=== PATIENT | male | born 1950 | race Caucasian/White ===

== ENCOUNTER 2017-05-17 07:48 | Inpatient (IN) | payer MEDICARE, OTHER ==
[~2017-05-17] VITALS: Ht 167.6 cm; Wt 66.0 kg
[2017-05-17 08:01] LABS: GLUCOSE,POINT OF CARE 208 MG/DL (70-110)
[2017-05-17] MEDS ORDERED: AMLO1TAB51 PO (08:04)
[2017-05-17] MEDS ORDERED: METF500T4 PO (08:04)
[2017-05-17 08:11] LABS: BASOPHILS % (AUTO) 0.4 % (0.0-2.0); HEMATOCRIT 43.8 % (41-53); HEMOGLOBIN 14.7 g/dL (13.5-17.5); LYMPHOCYTES # (AUTO) 1.8 K/uL (1.0-4.8); LYMPHOCYTES % (AUTO) 28.2 % (22.0-44.0); MEAN CORPUSCULAR HEMOGLOBIN 30.7 pg (26.0-34.0); MEAN CORPUSCULAR HGB CONC 33.5 G/dL (31.0-37.0); MEAN CORPUSCULAR VOLUME 92 fL (80-100); MONOCYTES # (AUTO) 0.4 K/uL (0.1-1.0); NEUTROPHILS # (AUTO) 3.9 K/uL (1.8-7.7); NEUTROPHILS % (AUTO) 63.4 % (40.0-70.0); PLATELET COUNT (AUTO) 207 K/uL (150-450); RED BLOOD CELL COUNT(AUTO) 4.78 MIL/uL (4.50-5.90); RED CELL DISTRIBUTION WIDTH 13.7 % (11.5-14.5); WHITE BLOOD COUNT (AUTO) 6.2 K/uL (4.5-11.0)
[2017-05-17] MEDS ORDERED: NITROGLYCERIN 2% (1 GM=INCH) PACKET TP ONE (08:15)
[2017-05-17] MEDS ORDERED: ASPIRIN 81 MG CHEWABLE TABLET PO ONE (08:15)
[2017-05-17 08:21] LABS: ANION GAP 6 mmol/L (8-16); CARBON DIOXIDE 30 mmol/L (22-29); CHLORIDE 100 mmol/L (98-107); CREATININE 1.13 mg/dL (0.60-1.30); GLOMERULAR FILTR. RATE CALC > 60 mL/min (>60); POTASSIUM 4.1 mmol/L (3.5-5.1); SODIUM SERUM 136 mmol/L (136-145); UREA NITROGEN, BLOOD 12 mg/dL (7-18)
[2017-05-17 08:31] LABS: PROTHROMBIN TIME 10.5 SEC (9.4-11.6)
[2017-05-17 08:34] LABS: B-TYPE NATRIURETIC PEPTIDE 18 pg/mL (0-100)
[2017-05-17 08:55] LABS: ALANINE AMINOTRANSFERASE 23 U/L (12-78); ALBUMIN 3.9 g/dL (3.4-5.0); ASPARTATE AMINOTRANSFERASE 11 U/L (15-37); BILIRUBIN,TOTAL 0.6 mg/dL (0.1-1.0); CREATINE KINASE MB 0.9 ng/mL (0-5); CREATINE KINASE, TOTAL 102 U/L (39-308); TOTAL PROTEIN, SERUM 7.6 g/dL (6.4-8.2)
[2017-05-17 09:00] LABS: APPEARANCE,URINE CLEAR (CLEAR); GLUCOSE, URINE (UA) 250 mg/dL (NEGATIVE); KETONES,URINE 40 mg/dL (NEGATIVE); LEUKOCYTE ESTERASE ,URINE NEGATIVE (NEGATIVE); OCCULT BLOOD,URINE NEGATIVE (NEGATIVE); PH,URINE 7.5 (5.0-8.0); PROTEIN,URINE TRACE (NEGATIVE)
[2017-05-17 09:13] LABS: ADD UA MICROSCOPIC YES
[2017-05-17 09:14] LABS: RBC,URINE None Seen /HPF (0-2); WBC,URINE None Seen /HPF (0-5)
[2017-05-17] MEDS ORDERED: LORazepam 2 MG/ML VIAL IVP ONE (09:30)
[2017-05-17] MEDS ORDERED: ACETAMINOPHEN 325 MG TABLET PO PRN (10:45)
[2017-05-17] MEDS ORDERED: MAGNESIUM HYDROXIDE SUSPENSION 30 ML UDCUP PO PRN (10:45)
[2017-05-17] MEDS ORDERED: MORPHINE SULFATE 2 MG/ML SYRINGE IVP PRN (10:45)
[2017-05-17] MEDS ORDERED: OxyCODONE HCL/ACETAMINOPHEN 5-325 MG TABLET PO PRN (10:45)
[2017-05-17] MEDS ORDERED: DEXTROSE 50%-WATER 25 GM/50 ML SYRINGE IVP PRN (10:45)
[2017-05-17] MEDS ORDERED: SODIUM CHLORIDE 0.9% 1,000 ML IV ONE (11:15)
[2017-05-17 11:56] VITALS: BP 101/68
[2017-05-17] MEDS: PANTOPRAZOLE SODIUM 40 MG DR TABLET PO SCH (12:25)
[2017-05-17] MEDS ORDERED: SODIUM CHLORIDE 0.9% 500 ML IV ONE (12:47)
[2017-05-17 15:36] VITALS: BP 99/66
[2017-05-17] MEDS: MetFORMIN HCL 500 MG TABLET PO SCH (18:03)
[2017-05-17] MEDS: INSULIN ASPART 100 UNITS/ML SQ PRN ×2 (18:03→21:49)
[2017-05-17 20:12] VITALS: BP 94/67
[2017-05-17] MEDS: DOCUSATE SODIUM 100 MG CAPSULE PO SCH (21:00)
[2017-05-17] MEDS ORDERED: ENOXAPARIN SODIUM 60 MG/0.6 ML PF SYRINGE SQ SCH (21:30)
[2017-05-17] MEDS ORDERED: ASPIRIN 81 MG EC TABLET PO SCH (21:30)
[2017-05-17] MEDS: SODIUM CHLORIDE 0.9% 1,000 ML IV SCH (21:45)
[2017-05-17 22:15] VITALS: BP 98/61
[2017-05-17 23:41] VITALS: BP 92/57
[2017-05-18 02:17] VITALS: BP 98/62
[2017-05-18 04:00] VITALS: BP 104/67
[2017-05-18] MEDS: SODIUM CHLORIDE 0.9% 1,000 ML IV SCH ×2 (05:20→13:15)
[2017-05-18 05:49] LABS: HEMOGLOBIN A1C 6.5 % (4.5-6.2)
[2017-05-18 06:15] LABS: CHOL/HDL RATIO 4.6 (4.2-7.3)
[2017-05-18] MEDS ORDERED: ATORVASTATIN CALCIUM 40 MG TABLET PO SCH (09:00)
[2017-05-18] MEDS ORDERED: MORPHINE SULFATE 2 MG/ML SYRINGE IVP PRN (09:15)
[2017-05-18] MEDS ORDERED: TICAGRELOR 90 MG TABLET PO ONE (09:15)
[2017-05-18] MEDS ORDERED: ASPIRIN 325 MG EC TABLET PO ONE (09:15)
[2017-05-18] MEDS: PANTOPRAZOLE SODIUM 40 MG DR TABLET PO SCH (10:00)
[2017-05-18] MEDS: MetFORMIN HCL 500 MG TABLET PO SCH (10:00)
[2017-05-18] MEDS: ENOXAPARIN SODIUM 80 MG/0.8 ML PF SYRINGE SQ SCH ×2 (10:01→19:14)
[2017-05-18] MEDS: DOCUSATE SODIUM 100 MG CAPSULE PO SCH (10:03)
[2017-05-18] MEDS: INSULIN ASPART 100 UNITS/ML SQ PRN (11:36)
[2017-05-18 13:56] LABS: GLUCOSE,POINT OF CARE 139 MG/DL (70-110)
[2017-05-18 13:57] LABS: GLUCOSE,POINT OF CARE 168 MG/DL (70-110)
[2017-05-18 15:57] VITALS: BP 101/63
[2017-05-18] MEDS ORDERED: MORPHINE SULFATE 4 MG/ML SYRINGE ONE (16:50)
[2017-05-18] MEDS ORDERED: MORPHINE SULFATE 4 MG/ML SYRINGE IVP PRN (17:00)
[2017-05-18] MEDS: MORPHINE SULFATE 4 MG/ML SYRINGE IVP PRN ×2 (17:02→20:42)
[2017-05-18 18:03] VITALS: BP 99/67
[2017-05-18 20:00] VITALS: BP 104/66
[2017-05-18] MEDS ORDERED: ASPIRIN 81 MG EC TABLET PO SCH (21:00)
[2017-05-18] MEDS ORDERED: TICAGRELOR 90 MG TABLET PO SCH (21:00)
[2017-05-18 23:47] LABS: GLUCOSE COMMENT 1 Received Meds; GLUCOSE,POINT OF CARE 129 MG/DL (70-110)
[2017-05-19 07:27] LABS: GLUCOSE COMMENT 1 Received Meds; GLUCOSE,POINT OF CARE 229 MG/DL (70-110)
[2017-05-19] MEDS ORDERED: ASPIRIN 81 MG EC TABLET PO SCH (09:00)
[2017-05-20] MEDS ORDERED: ASPIRIN 81 MG EC TABLET PO SCH (09:00)
== END 2017-05-18 21:00 | disposition short-term general hospital (02) | DRG 282 ==
LOC: EMS 07:50 → 5S 11:20 → ICU 05-18 04:00
PROVIDERS: ADMIT Internal Medicine; ATTEND Internal Medicine
DX: I21.4 Non-ST elevation (NSTEMI) myocardial infarction (principal); E11.9 Type 2 diabetes mellitus without complications; F41.9 Anxiety disorder, unspecified; E11.65 Type 2 diabetes mellitus with hyperglycemia; I10 Essential (primary) hypertension; Z79.84 Long term (current) use of oral hypoglycemic drugs; Z79.899 Other long term (current) drug therapy; Z82.49 Family history of ischemic heart disease and other diseases of the circulatory system; Z83.3 Family history of diabetes mellitus
CPT/HCPCS: 82962; 83036; 87081; 93005; 93306; 96361; 96374; 99285; J1650; J2060; J2270; J7030; J7040